=== PATIENT | male | born 1965 | race African-American/Black ===

== ENCOUNTER 2021-07-28 21:30 | Observation (INO) ==
[2021-07-28 21:46] VITALS: BMI 39.2
[2021-07-28 22:20] LABS: BASOPHILS # (AUTO) 0.1 X10^3/uL (0.0-0.1); BASOPHILS % (AUTO) 0.6 % (0.2-1.0); MEAN PLATELET VOLUME 9.9 fL (7.4-11.0); PLATELET COUNT 166 X10^3/uL (150.0-450.0)
[2021-07-28 22:25] LABS: EOSINOPHILS # (AUTO) 0.6 x10^3/uL (0.0-0.2); EOSINOPHILS % (AUTO) 4.6 % (0.9-2.9); HEMATOCRIT 24.9 % (42.0-54.0); HEMOGLOBIN 8.3 g/dL (13.5-18.0); LYMPHOCYTES # (AUTO) 1.8 X10^3/uL (1.3-2.9); LYMPHOCYTES % (AUTO) 13.8 % (21.0-51.0); MEAN CORPUSCULAR HEMOGLOBIN 31.7 pg (27.0-34.0); MEAN CORPUSCULAR HGB CONC 33.5 g/dL (33.0-35.0); MEAN CORPUSCULAR VOLUME 94.5 fL (80.0-100.0); MONOCYTES # (AUTO) 1.5 x10^3/uL (0.3-0.8); MONOCYTES % (AUTO) 11.3 % (0.0-13.0); NEUTROPHILS # (AUTO) 9.1 x10^3/uL (2.2-4.8); NEUTROPHILS % (AUTO) 69.7 % (42.0-75.0); RED BLOOD COUNT 2.63 X10^6/uL (4.7-6.0); RED CELL DISTRIBUTION WIDTH 13.7 % (11.6-16.5); WHITE BLOOD COUNT 13.1 X10^3/uL (3.6-10.0)
[2021-07-28 22:29] LABS: ALBUMIN 3.2 g/dL (3.4-5.0); CALCIUM 8.2 mg/dL (8.5-10.1); CARBON DIOXIDE 29.2 mmol/L (21-32); COR CA(FOR HYPOALB) 8.8 mg/dL (8.5-10.1); CREATININE 1.71 mg/dL (0.70-1.30); TOTAL PROTEIN 6.2 g/dL (6.4-8.2)
--- NOTE | 2021-07-28 22:40 | DR.EXTPAIN ---
HPI Time seen Time Seen by Provider: 07/28/21 22:05 PCP Primary Care Physician: HPI Comment HPI Comment: A 55 y/o male presents with noting rectal bleed since yesterday. And this is jb blood he states and with each use of the commode. This morning, he noted passage of jb blood per penis. He denies associated flank pain. He had a laparoscopic appendectomy yesterday. There is no nausea or vomiting. Complaint/Symptoms Chief Complaint:: PATIENT HAD AN APPENDENTOMY 07/27/2021, PATIENT STATES HE IS BLEEDING DARK RED BLOOD NOT FROM INCISION SITE BUT RECTALLY SINCE YESTERDAY AND FROM PENIS STARTED TODAY. PATIENT NOTIFIED AND WAS TOLD TO NOTIFY HIM ONCE ARRIVED AT THE ER. Nurses notes reviewed Nurses Notes Review: Yes Source History Provided: Patient Mode of arrival Mode of Arrival: Ambulatory Timing Onset of Chief Complaint: 07/27/21 Associated signs and symptoms Associated Signs and Symptoms: Hematuria PMH PMH Past Medical History: Yes Past Medical History: Hypertension Past Surgical History: Yes Surgical History: AAA Repair and Cholecystectomy Past Surgical History Comment: KIDNEY STENTS, FISTULA Family History History of Family Medical Conditions: Yes Family Medical History: Diabetes Mellitus and Hypertension Social History Does patient currently use any type of tobacco product: No Type of Tobacco Use: None Does any household member use tobacco: No Alcohol Use: None Do you use any recreational Drugs:: No Lives With: Spouse Lives Where: Home Infectious screening In the last 2 months have you had wt loss of >10#?: NO Have you had fever, night sweats or hemotysis?: No Have you traveled outside the country in the last 6 months?: No Isolation: Standard ROS Review of Systems Constitutional: No Symptoms Reported Eyes: No Symptoms Reported ENTM: No Symptoms Reported Respiratoy: No Symptoms Reported Cardiovascular: No Symptoms Reported Gastrointestinal/Abdominal: Other (rectal bleed) Genitourinary: Hematuria Neurological: No Symptoms Reported Musculoskeletal: No Symptoms Reported Integumentary: No Symptoms Reported Hematologic/Lymphatic: No Symptoms Reported Endocrine: No Symptoms Reported Psychiatric: No Symptoms Reported PE Vital Signs Vitals: Temperature 99.2 F Pulse Rate [Apical] 95 Pulse Rate 103 Respiratory Rate 17 Blood Pressure [Right Arm] 130/65 Blood Pressure 127/64 O2 Sat by Pulse Oximetry 98 General Limitations: No Limitations General Appearance: Alert and In No Apparent Distress Head Head Exam: Normal Inspection, Atraumatic and Normocephalic Eyes Eye exam: Normal Appearance and EOMI ENT ENT Exam: Normal Exam, Normal Oropharynx, Normal External Ear Exam and Mucous Membranes Moist Neck Neck Exam: Normal Inspection, Full ROM and Trachea Midline Chest Chest Inspection: Normal Inspection and Symmetric Chest Wall Rise Respiratory Respiratory Exam: Normal Lung Sounds Bilat Cardiovascular Cardiovascular Exam: Regular Rate, Normal Rhythm, +S1 and +S2 Abdominal Exam Abdominal Exam: Normal Inspection, Normal Bowel Sounds and Soft Extremities Extremities Exam: Normal Inspection and Full ROM Back Back Exam: Normal Inspection and Full ROM; negative Tenderness, (R) CVA Tenderness, (L) CVA Tenderness, Muscle Spasm, Paraspinal Tenderness, Vertebral Tenderness, Rashes, (R) Sciatic Notch Tenderness, (L) Sciatic Notch Tendern, (R) Straight Leg Raise and (L) Straight Leg Raise Neurological Neurological Exam: Alert and Oriented X3 Psychiatric Psychiatric Exam: Normal Affect and Normal Mood Skin Skin Exam: Intact and Normal Color COURSE Treatment Treatment: One of the shift nurses had reviewed labs. and test results with Dr. Jaramillo and I understand he will be on his way into the hospital. I was later informed that Dr. Jaramillo wants the pt. admitted to his service. Reevaluation 1st: Unchanged Education/Counseling Education/Counseling: Patient, Education and Counseling Educated On: Treatment, Diagnosis, Prognosis and Needs for Follow Up ROR Labs Reviewed Result Diagrams: 07/29/21 06:30 07/28/21 22:10 Laboratory: WBC 12.5 X10^3/uL (3.6-10.0) H 07/29/21 06:30 RBC 2.16 X10^6/uL (4.7-6.0) L 07/29/21 06:30 Hgb 6.9 g/dL (13.5-18.0) L* 07/29/21 06:30 Hct 20.3 % (42.0-54.0) L 07/29/21 06:30 MCV 94.0 fL (80.0-100.0) 07/29/21 06:30 MCH 31.7 pg (27.0-34.0) 07/29/21 06:30 MCHC 33.7 g/dL (33.0-35.0) 07/29/21 06:30 RDW 13.7 % (11.6-16.5) 07/29/21 06:30 Plt Count 155 X10^3/uL (150.0-450.0) 07/29/21 06:30 MPV 10.2 fL (7.4-11.0) 07/29/21 06:30 Neut % (Auto) 66.5 % (42.0-75.0) 07/29/21 06:30 Lymph % (Auto) 15.7 % (21.0-51.0) L 07/29/21 06:30 [place] % (Auto) 11.9 % (0.0-13.0) 07/29/21 06:30 Eos % (Auto) 5.3 % (0.9-2.9) H 07/29/21 06:30 Baso % (Auto) 0.6 % (0.2-1.0) 07/29/21 06:30 Neut # (Auto) 8.3 x10^3/uL (2.2-4.8) H 07/29/21 06:30 Lymph # (Auto) 2.0 X10^3/uL (1.3-2.9) 07/29/21 06:30 [place] # (Auto) 1.5 x10^3/uL (0.3-0.8) H 07/29/21 06:30 Eos # (Auto) 0.7 x10^3/uL (0.0-0.2) H 07/29/21 06:30 Baso # (Auto) 0.1 X10^3/uL (0.0-0.1) 07/29/21 06:30 Absolute Nucleated RBC 0.0 /100WBC 07/29/21 06:30 PT 15.9 SECONDS (11.8-14.3) 07/28/21 22:10 INR Target Range - 07/28/21 22:10 INR 1.34 (0.8-1.3) H 07/28/21 22:10 APTT 41.1 SECONDS (22.9-36.5) H 07/28/21 22:10 PTT Comment - 07/28/21 22:10 Sodium 135 mmol/L (136-145) L 07/28/21 22:10 Corrected Sodium 137 mmol/L (136-145) 07/28/21 22:10 Potassium 3.2 mmol/L (3.5-5.1) L 07/28/21 22:10 Chloride 99 mmol/L (98-107) 07/28/21 22:10 Carbon Dioxide 29.2 mmol/L (21-32) 07/28/21 22:10 BUN 38 mg/dL (7-18) H 07/28/21 22:10 Creatinine 1.71 mg/dL (0.70-1.30) H 07/28/21 22:10 Est GFR (MDRD) Af Amer 54 (>60) L 07/28/21 22:10 Est GFR (MDRD) Non-Af 44 (>60) L 07/28/21 22:10 Glucose 188 mg/dL (65-99) H 07/28/21 22:10 POC Glucose (mg/dL) 232 mg/dL (65-99) H 07/29/21 06:26 Calcium 8.2 mg/dL (8.5-10.1) L 07/28/21 22:10 Corrected Calcium 8.8 mg/dL (8.5-10.1) 07/28/21 22:10 Total Bilirubin 0.70 mg/dL (0.2-1.0) 07/28/21 22:10 AST 20 Units/L (15-37) 07/28/21 22:10 ALT 19 Units/L (12-78) 07/28/21 22:10 Alkaline Phosphatase 49 Units/L (46-116) 07/28/21 22:10 Total Protein 6.2 g/dL (6.4-8.2) L 07/28/21 22:10 Albumin 3.2 g/dL (3.4-5.0) L 07/28/21 22:10 Globulin 3.0 g/dL (2.5-4.5) 07/28/21 22:10 Albumin/Globulin Ratio 1.1 Ratio (1.1-2.1) 07/28/21 22:10 Opioid Opioid Risk Tool Age (Can box if 16-45): No History of Preadolescent Sexual Abuse: No Total: 0 Total Score Risk Category: Low Risk Copyright: Clinton ALEJANDRA predicting aberrant behaviors Diagnosis Discharge Problem: Postoperative anemia due to acute blood loss Hematuria Qualifiers: Hematuria type: gross Qualified Code(s): R31.0 - Gross hematuria Gastrointestinal bleeding Qualifiers: GI bleed type/associated pathology: unspecified gastrointestinal hemorrhage typ e Qualified Code(s): K92.2 - Gastrointestinal hemorrhage, unspecified ADDITIONAL NOTES Additional Notes Additional Notes: Name: Rose REYNA#: [id number]: [id number] : 1965Sex: MLocation: ER Order Number(s): [id number](s):ABDOMEN/PELVIS WITH CON Ordering Physician: Keith Jaramillo Primary Care: Keith Jaramillo Service Date: 07/28/21 Service Time: 2154 HISTORY PATIENT HAD AN APPENDENTOMY 07/27/2021, PATIENT STATES HE IS BLEEDING DARK RED BLOOD NOT FROM INCISION SITE BUT RECTALLY SINCE YESTERDAY AND FROM PENIS STARTED TODAY. STUDY ABDOMEN/PELVIS WITH CON COMPARISON 07/27/2021 TECHNIQUE Multiple axial images of the abdomen and pelvis were obtained from the lung bases to the pubic symphysis after the administration of IV contrast. Dose reduction techniques including Automated Exposure Control (AEC) and adjustment of mA and kV were utilized. FINDINGS The visualized portions of the lung bases are unremarkable . The liver, spleen, pancreas, kidneys, and adrenal glands are unremarkable in their CT appearance. Post cholecystectomy changes.. No significant mesenteric lymphadenopathy or stranding can be observed. Stable complex aortic pathology with stent graft placement due to aortic dissection. 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 No free fluid or free air is seen within the abdomen. Post recent appendectomy changes are noted. There is a small amount of air and stranding in the right lower quadrant from recent surgical procedure. There are scattered air-fluid levels throughout the colon and rectum exhibiting increased attenuation suggesting complex fluid or hemorrhage.. The colon is unremarkable. Specifically, there is no diverticulosis noted within the sigmoid colon. The urinary bladder is grossly unremarkable. The bony structures are grossly intact. IMPRESSION Post recent appendectomy changes are noted. There is a small amount of air and stranding in the right lower quadrant. There is also a small amount of pneumoperitoneum related to recent abdominal surgery. Scattered air-fluid levels throughout the colon and rectum exhibiting mild increased attenuation suggesting complex fluid or hemorrhage. Post cholecystectomy changes. Stable complex aortic pathology without acute hemorrhage noted. Electronically signed by: Juan Malik (Jul 29, 2021 02:32:07) Report Electronically signed: 07/29/21 0234 CC: Keith Jaramillo
[2021-07-29] MEDS ORDERED: DEMEROL INJ IVP ONE (00:02)
[2021-07-29] MEDS ORDERED: DEMEROL INJ ONE ×4 (00:03→23:18)
[2021-07-29] MEDS ORDERED: K-DUR TAB 20 MEQ PO ONE ×2 (01:42→02:07)
[2021-07-29] MEDS ORDERED: NS 1000 ML 1,000 ML IV ONE ×2 (01:42→07:08)
[2021-07-29] MEDS ORDERED: NS 1000 ML 1,000 ML ONE ×2 (02:08→07:10)
[2021-07-29] MEDS: DEMEROL INJ IVP ONE ×2 (02:23→02:26)
--- NOTE | 2021-07-29 02:34 | CT ---
HISTORYPATIENT HAD AN APPENDENTOMY 07/27/2021, PATIENT STATES HE IS BLEEDING DARK RED BLOOD NOT FROM INCISION SITE BUT RECTALLY SINCE YESTERDAY AND FROM PENIS STARTED TODAY.STUDYABDOMEN/PELVIS WITH [id number]/07/2021TECHNIQUEMultiple axial images of the abdomen and pelvis were obtained from the lung bases to the pubic symphysis after the administration of IV contrast. Dose reduction techniques including Automated Exposure Control (AEC) and adjustment of mA and kV were utilized.FINDINGSThe visualized portions of the lung bases are unremarkable . The liver, spleen, pancreas, kidneys, and adrenal glands are unremarkable in their CT appearance. Post cholecystectomy changes.. No significant mesenteric lymphadenopathy or stranding can be observed. Stable complex aortic pathology with stent graft placement due to aortic dissection. 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 No free fluid or free air is seen within the abdomen. Post recent appendectomy changes are noted. There is a small amount of air and stranding in the right lower quadrant from recent surgical procedure. There are scattered air-fluid levels throughout the colon and rectum exhibiting increased attenuation suggesting complex fluid or hemorrhage.. The colon is unremarkable. Specifically, there is no diverticulosis noted within the sigmoid colon. The urinary bladder is grossly unremarkable. The bony structures are grossly intact.IMPRESSIONPost recent appendectomy changes are noted. There is a small amount of air and stranding in the right lower quadrant. There is also a small amount of pneumoperitoneum related to recent abdominal surgery.Scattered air-fluid levels throughout the colon and rectum exhibiting mild increased attenuation suggesting complex fluid or hemorrhage.Post cholecystectomy changes.Stable complex aortic pathology without acute hemorrhage noted.Electronically signed by: Juan Malik (Jul 29, 2021 02:32:07)
[2021-07-29 06:47] LABS: BASOPHILS # (AUTO) 0.1 X10^3/uL (0.0-0.1); BASOPHILS % (AUTO) 0.6 % (0.2-1.0); EOSINOPHILS # (AUTO) 0.7 x10^3/uL (0.0-0.2); EOSINOPHILS % (AUTO) 5.3 % (0.9-2.9); HEMATOCRIT 20.3 % (42.0-54.0); LYMPHOCYTES % (AUTO) 15.7 % (21.0-51.0); MEAN CORPUSCULAR HEMOGLOBIN 31.7 pg (27.0-34.0); MEAN CORPUSCULAR HGB CONC 33.7 g/dL (33.0-35.0); MEAN PLATELET VOLUME 10.2 fL (7.4-11.0); MONOCYTES # (AUTO) 1.5 x10^3/uL (0.3-0.8); MONOCYTES % (AUTO) 11.9 % (0.0-13.0); NEUTROPHILS # (AUTO) 8.3 x10^3/uL (2.2-4.8); NEUTROPHILS % (AUTO) 66.5 % (42.0-75.0); PLATELET COUNT 155 X10^3/uL (150.0-450.0); RED BLOOD COUNT 2.16 X10^6/uL (4.7-6.0); RED CELL DISTRIBUTION WIDTH 13.7 % (11.6-16.5); WHITE BLOOD COUNT 12.5 X10^3/uL (3.6-10.0)
[2021-07-29 06:49] LABS: HEMOGLOBIN 6.9 g/dL (13.5-18.0)
[2021-07-29] MEDS ORDERED: NS 500 ML IV 500 ML IV ONE ×2 (08:49→13:18)
[2021-07-29] MEDS ORDERED: BENADRYL INJ 50 MG VIAL IVP ONE (09:18)
[2021-07-29] MEDS ORDERED: TYLENOL 325 MG TAB PO ONE ×2 (09:18→09:21)
[2021-07-29] MEDS ORDERED: BENADRYL INJ 50 MG VIAL ONE (09:21)
[2021-07-29] MEDS ORDERED: TRANEXAMIC ACID 1,000 MG in NS 100 ML IV 100 ML IV SCH (17:00)
--- NOTE | 2021-07-29 17:04 | DR.H&P ---
H&P History & Physical for Day of: H&P Date: 07/29/21 Chief Complaint Chief Complaint: Dark blood from rectum, blood with urination Allergies Allergies Allergy/AdvReac Type Severity Reaction Status Date / Time hydromorphone [From Dilaudid] Allergy Verified 07/27/21 15:23 morphine Allergy Verified 07/27/21 15:23 History of Present Illness History of Present Illness: This patient is a 55-year-old male who underwent laparoscopic appendectomy 2 days ago for acute appendicitis. He tolerated the procedure well. He was seen in my office yesterday complaining of dark blood per rectum and was hemodynamically stable with a benign abdomen. I received a phone call late last night that he also had blood with urination . Patient presented to the emergency room where he is had CBC drawn, complete metabolic profile and CT scan of the abdomen. Initial hemoglobin was 8.3 and something dropped to 6.9 prompting the delivery of 2 units of packed red blood cells. Past Medical History Past Medical History: CHF, Diabetes and Hypertension Additional Medical History: dissection of thoracic aorta s/p stent graft repair Past Surgical History Surgical History: Appendectomy and Cholecystectomy Additional Surgical History: stent repair aortic dissection, repair of renal fistula, left renal artery aneurysm Family History Family Medical History: Diabetes Mellitus and Hypertension Social History Does patient currently use any type of tobacco product: No Type of Tobacco Use: None Does any household member use tobacco: No Alcohol Use: Occasionally Prescription drug monitoring program results: PDMP reviewed and no concerns identified Medications Home Medications: hydromorphone [From Dilaudid] Allergy (Verified 07/27/21 15:23) morphine Allergy (Verified 07/27/21 15:23) Amiodarone 200 mg daily amlodipine 10 mg daily ciprofloxacin 500 mg BID citalopram 40 mg daily Lasix 40 mg b.i.d. Gabapentin 300 mg TID Leflunomide 20 mg daily Metformin 500 mg daily Metolazone 2.5 mg daily minoxidil 10 mg TID Percocet 5 mg tablets Q6 hours PRN Potassium chloride 40 mg b.i.d. tizanidine 4 mg po TID Labs Result Diagrams: 07/29/21 16:57 07/28/21 22:10 Labs: Laboratory WBC 12.5 X10^3/uL (3.6-10.0) H 07/29/21 06:30 RBC 2.16 X10^6/uL (4.7-6.0) L 07/29/21 06:30 Hgb 6.9 g/dL (13.5-18.0) L* 07/29/21 06:30 Hct 20.3 % (42.0-54.0) L 07/29/21 06:30 MCV 94.0 fL (80.0-100.0) 07/29/21 06:30 MCH 31.7 pg (27.0-34.0) 07/29/21 06:30 MCHC 33.7 g/dL (33.0-35.0) 07/29/21 06:30 RDW 13.7 % (11.6-16.5) 07/29/21 06:30 Plt Count 155 X10^3/uL (150.0-450.0) 07/29/21 06:30 MPV 10.2 fL (7.4-11.0) 07/29/21 06:30 Neut % (Auto) 66.5 % (42.0-75.0) 07/29/21 06:30 Lymph % (Auto) 15.7 % (21.0-51.0) L 07/29/21 06:30 [place] % (Auto) 11.9 % (0.0-13.0) 07/29/21 06:30 Eos % (Auto) 5.3 % (0.9-2.9) H 07/29/21 06:30 Baso % (Auto) 0.6 % (0.2-1.0) 07/29/21 06:30 Neut # (Auto) 8.3 x10^3/uL (2.2-4.8) H 07/29/21 06:30 Lymph # (Auto) 2.0 X10^3/uL (1.3-2.9) 07/29/21 06:30 [place] # (Auto) 1.5 x10^3/uL (0.3-0.8) H 07/29/21 06:30 Eos # (Auto) 0.7 x10^3/uL (0.0-0.2) H 07/29/21 06:30 Baso # (Auto) 0.1 X10^3/uL (0.0-0.1) 07/29/21 06:30 Absolute Nucleated RBC 0.0 /100WBC 07/29/21 06:30 PT 15.9 SECONDS (11.8-14.3) 07/28/21 22:10 INR Target Range - 07/28/21 22:10 INR 1.34 (0.8-1.3) H 07/28/21 22:10 APTT 41.1 SECONDS (22.9-36.5) H 07/28/21 22:10 PTT Comment - 07/28/21 22:10 Sodium 135 mmol/L (136-145) L 07/28/21 22:10 Corrected Sodium 137 mmol/L (136-145) 07/28/21 22:10 Potassium 3.2 mmol/L (3.5-5.1) L 07/28/21 22:10 Chloride 99 mmol/L (98-107) 07/28/21 22:10 Carbon Dioxide 29.2 mmol/L (21-32) 07/28/21 22:10 BUN 38 mg/dL (7-18) H 07/28/21 22:10 Creatinine 1.71 mg/dL (0.70-1.30) H 07/28/21 22:10 Est GFR (MDRD) Af Amer 54 (>60) L 07/28/21 22:10 Est GFR (MDRD) Non-Af 44 (>60) L 07/28/21 22:10 Glucose 188 mg/dL (65-99) H 07/28/21 22:10 POC Glucose (mg/dL) 174 mg/dL (65-99) H 07/29/21 16:16 Calcium 8.2 mg/dL (8.5-10.1) L 07/28/21 22:10 Corrected Calcium 8.8 mg/dL (8.5-10.1) 07/28/21 22:10 Total Bilirubin 0.70 mg/dL (0.2-1.0) 07/28/21 22:10 AST 20 Units/L (15-37) 07/28/21 22:10 ALT 19 Units/L (12-78) 07/28/21 22:10 Alkaline Phosphatase 49 Units/L (46-116) 07/28/21 22:10 Total Protein 6.2 g/dL (6.4-8.2) L 07/28/21 22:10 Albumin 3.2 g/dL (3.4-5.0) L 07/28/21 22:10 Globulin 3.0 g/dL (2.5-4.5) 07/28/21 22:10 Albumin/Globulin Ratio 1.1 Ratio (1.1-2.1) 07/28/21 22:10 Stool Description 30 gms liquid brown 07/29/21 11:39 Stl Occult Blood (IFOB) Positive (NEGATIVE) A 07/29/21 11:39 SARS-CoV-2 (PCR) Negative (NEGATIVE) 07/29/21 07:05 Influenza Type A (PCR) Negative (NEGATIVE) 07/29/21 07:05 Influenza Type B (PCR) Negative (NEGATIVE) 07/29/21 07:05 RSV (PCR) Negative (NEGATIVE) 07/29/21 07:05 Blood Type O POSITIVE 07/29/21 07:07 Antibody Screen Negative 07/29/21 07:07 Crossmatch See Detail 07/29/21 07:07 Review of Systems Constitutional: No Symptoms Reported Eyes: No Symptoms Reported ENT: No Symptoms Reported Respiratory: No Symptoms Reported Cardiovascular: No Symptoms Reported Gastrointestinal: Nausea, Vomiting and Hematochezia Genitourinary: Hematuria Musculoskeletal: No Symptoms Reported Skin: No Symptoms Reported Neurological: No Symptoms Reported Physical Exam Vital Signs: Temperature 98.6 F Pulse Rate [Apical] 97 Pulse Rate 107 Respiratory Rate 20 Blood Pressure [Right Arm] 135/61 Blood Pressure 133/65 O2 Sat by Pulse Oximetry 99 Oriented: Normal, Time, Person and Place Eyes: Normal Ear: Normal Nose: Normal Respiratory: Clear Throughout Cardiovascular: Normal and Other (hypertensive) : Hematuria (CT of pelvis with no abnormality , Had Akhtar placed at time of appendectomy) Auscultation: Bowel Sounds: Normal Palpation: Other (Incisional tenderness, Mild RLQ tenderness, no peritoneal signs ) Tenderness: RLQ (no peritoneal signs) Skin: Normal Musculoskeletal: Normal Mood Description: Anxious Affect: Normal Speech Pattern: Clear Assessment/Plan (1) Diabetes: Status: Acute Plan: Was on clear liquids, no need for urgent surgery. Will start 1800 calorie diet, Will do sliding scale insulun (2) Postoperative anemia due to acute blood loss: Status: Acute Plan: CT scan shows no evidence of acute problems. Does have some evidence of hemorrhage in the colon. No obvious diverticulitis. Patient had a normal colonoscopy 1 1/2 years ago. I am concerned that there is bleeding from the staple line from the appendectomy. Coagulation profile is normal as is the platelet count. There is no evidence of thrombolysis. Patient has received 2 units of blood and hemoglobin is still 6.9. Still with liquid black bowel movements. Will begin tranexemic acid . Will obtain sequential CBC. (3) Hematuria: Qualifiers: Hematuria type: gross Qualified Code(s): R31.0 - Gross hematuria Status: Acute Plan: No evidence of from the lysis. Hematuria may be due to placement of Akhtar catheter . Will observe. (4) Gastrointestinal bleeding: Qualifiers: GI bleed type/associated pathology: unspecified gastrointestinal hemorrhage type Qualified Code(s): K92.2 - Gastrointestinal hemorrhage, unspecified Status: Acute Plan: Will treat symptomatically at this time. Although no epigastric tenderness or vomiting of blood will begin protonic side of the 40 mg to 24 hours. Patient will require colonoscopy. I am hesitant to do that in the acute setting with the acute staple line at the appendix. Will give the tranexmic acid and observe. (5) Acute appendicitis: Qualifiers: Acute appendicitis type: unspecified acute appendicitis type Qualified Code(s): K35.80 - Unspecified acute appendicitis Status: Acute Plan: Continue po Cipro (6) Abdominal pain: Qualifiers: Abdominal location: right lower quadrant Qualified Code(s): R10.31 - Right lower quadrant pain Status: Acute Plan: see above Review H&P Reviewed: Yes Patient was examined?: Yes
[2021-07-29] MEDS ORDERED: PROTONIX INJ 40 MG VIAL IVP ONE (17:08)
[2021-07-29] MEDS ORDERED: TRANEXAMIC ACID 1,000 MG in NS 1000 ML 1,000 ML IV SCH (17:15)
[2021-07-29] MEDS ORDERED: ZOFRAN INJ 4 MG VIAL ONE (17:40)
[2021-07-29] MEDS: DEMEROL INJ IVP PRN ×2 (17:55→23:19)
[2021-07-29] MEDS ORDERED: ZOFRAN INJ 4 MG VIAL IVP PRN (18:09)
[2021-07-29] MEDS ORDERED: HumuLIN R SC PRN (20:39)
[2021-07-29] MEDS ORDERED: LASIX IVP ONE (20:40)
[2021-07-29] MEDS ORDERED: PROTONIX INJ 40 MG VIAL ONE (20:40)
[2021-07-29] MEDS: LASIX IVP ONE ×2 (20:44→20:45)
[2021-07-29] MEDS ORDERED: ZANAFLEX PO PRN (20:46)
[2021-07-29] MEDS ORDERED: CIPRO TAB 500 MG PO ONE (21:03)
[2021-07-29] MEDS: CIPRO TAB 500 MG PO SCH (21:19)
[2021-07-29] MEDS: MINOXIDIL PO SCH (21:20)
[2021-07-29] MEDS: NEURONTIN CAP 300 MG PO SCH (21:20)
[2021-07-29] MEDS: K-DUR TAB 20 MEQ PO SCH (21:20)
[2021-07-29] MEDS ORDERED: NS 250 ML IV 250 ML IV ONE (22:11)
[2021-07-30] MEDS ORDERED: NS 250 ML IV 250 ML IV ONE (02:45)
[2021-07-30] MEDS: NEURONTIN CAP 300 MG PO SCH (05:53)
[2021-07-30] MEDS: MINOXIDIL PO SCH (05:53)
[2021-07-30] MEDS: NS 1000 ML 1,000 ML IV SCH ×2 (05:54→10:04)
[2021-07-30 07:00] LABS: HEMATOCRIT 21.8 % (42.0-54.0); HEMOGLOBIN 7.5 g/dL (13.5-18.0)
[2021-07-30] MEDS ORDERED: LASIX PO SCH (09:00)
[2021-07-30] MEDS ORDERED: NORVASC TAB 10 MG PO SCH (09:00)
[2021-07-30] MEDS ORDERED: ZAROXOLYN PO SCH (09:00)
[2021-07-30] MEDS ORDERED: CORDARONE TAB 200 MG PO SCH (09:00)
[2021-07-30] MEDS ORDERED: PROTONIX INJ 40 MG VIAL IVP SCH (09:00)
[2021-07-30] MEDS ORDERED: CELEXA PO SCH (09:00)
[2021-07-30] MEDS ORDERED: CIPRO TAB 500 MG PO ONE (09:17)
[2021-07-30] MEDS ORDERED: K-DUR TAB 20 MEQ PO ONE (09:17)
[2021-07-30] MEDS ORDERED: NS 1000 ML 1,000 ML ONE (09:17)
[2021-07-30] MEDS ORDERED: LASIX ONE (09:17)
[2021-07-30] MEDS ORDERED: PROTONIX INJ 40 MG VIAL ONE (09:17)
[2021-07-30] MEDS: CIPRO TAB 500 MG PO SCH (09:46)
[2021-07-30] MEDS: K-DUR TAB 20 MEQ PO SCH (09:47)
[2021-07-30 12:33] LABS: BASOPHILS % (AUTO) 0.5 % (0.2-1.0); EOSINOPHILS # (AUTO) 0.7 x10^3/uL (0.0-0.2); EOSINOPHILS % (AUTO) 9.3 % (0.9-2.9); HEMATOCRIT 21.6 % (42.0-54.0); HEMOGLOBIN 7.4 g/dL (13.5-18.0); LYMPHOCYTES # (AUTO) 0.7 X10^3/uL (1.3-2.9); MEAN CORPUSCULAR HEMOGLOBIN 30.2 pg (27.0-34.0); MEAN CORPUSCULAR HGB CONC 34.2 g/dL (33.0-35.0); MEAN CORPUSCULAR VOLUME 88.2 fL (80.0-100.0); MEAN PLATELET VOLUME 9.9 fL (7.4-11.0); MONOCYTES # (AUTO) 0.8 x10^3/uL (0.3-0.8); MONOCYTES % (AUTO) 10.7 % (0.0-13.0); NEUTROPHILS # (AUTO) 5.2 x10^3/uL (2.2-4.8); NEUTROPHILS % (AUTO) 70.5 % (42.0-75.0); PLATELET COUNT 116 X10^3/uL (150.0-450.0); RED BLOOD COUNT 2.45 X10^6/uL (4.7-6.0); RED CELL DISTRIBUTION WIDTH 15.8 % (11.6-16.5); WHITE BLOOD COUNT 7.4 X10^3/uL (3.6-10.0)
[2021-07-30 12:45] VITALS: BP 164/74
--- NOTE | 2021-07-30 13:36 | PCM.DCPLAN ---
DISCHARGE SUMMARY Admission Date Date of Admission: 07/29/21 Discharge Date Discharge Date: 07/30/21 Admission Diagnoses (1) Diabetes: Status: Acute (2) Postoperative anemia due to acute blood loss: Status: Acute (3) Hematuria: Status: Acute (4) Gastrointestinal bleeding: Status: Acute (5) Acute appendicitis: Status: Acute (6) Abdominal pain: Status: Acute Discharge Diagnoses Discharge Diagnosis: same Discharge Medications Discharge Medications: Home Medication List pantoprazole [Protonix] 40 mg PO QAM #30 tab 07/30/21 [Rx] Prescriptions: pantoprazole [Protonix] [facility] Course Vital Signs: Temperature 98.7 F Pulse Rate [Apical] 93 Pulse Rate 107 Respiratory Rate 18 Blood Pressure [Right Arm] 164/74 Blood Pressure 133/65 O2 Sat by Pulse Oximetry 100 Latest Lab Results: Laboratory Last Values WBC 7.4 X10^3/uL (3.6-10.0) 07/30/21 12:21 RBC 2.45 X10^6/uL (4.7-6.0) L 07/30/21 12:21 Hgb 7.4 g/dL (13.5-18.0) L 07/30/21 12:21 Hct 21.6 % (42.0-54.0) L 07/30/21 12:21 MCV 88.2 fL (80.0-100.0) 07/30/21 12:21 MCH 30.2 pg (27.0-34.0) 07/30/21 12:21 MCHC 34.2 g/dL (33.0-35.0) 07/30/21 12:21 RDW 15.8 % (11.6-16.5) 07/30/21 12:21 Plt Count 116 X10^3/uL (150.0-450.0) L 07/30/21 12:21 MPV 9.9 fL (7.4-11.0) 07/30/21 12:21 Neut % (Auto) 70.5 % (42.0-75.0) 07/30/21 12:21 Lymph % (Auto) 9.0 % (21.0-51.0) L 07/30/21 12:21 Love % (Auto) 10.7 % (0.0-13.0) 07/30/21 12:21 Eos % (Auto) 9.3 % (0.9-2.9) H 07/30/21 12:21 Baso % (Auto) 0.5 % (0.2-1.0) 07/30/21 12:21 Neut # (Auto) 5.2 x10^3/uL (2.2-4.8) H 07/30/21 12:21 Lymph # (Auto) 0.7 X10^3/uL (1.3-2.9) L 07/30/21 12:21 Love # (Auto) 0.8 x10^3/uL (0.3-0.8) 07/30/21 12:21 Eos # (Auto) 0.7 x10^3/uL (0.0-0.2) H 07/30/21 12:21 Baso # (Auto) 0.0 X10^3/uL (0.0-0.1) 07/30/21 12:21 Absolute Nucleated RBC 0.1 /100WBC 07/30/21 12:21 PT 15.1 SECONDS (11.8-14.3) 07/30/21 06:38 INR Target Range - 07/30/21 06:38 INR 1.25 (0.8-1.3) 07/30/21 06:38 APTT 34.2 SECONDS (22.9-36.5) 07/30/21 06:38 PTT Comment - 07/30/21 06:38 Fibrinogen 344 mg/dL (239-489) 07/30/21 06:38 Sodium 135 mmol/L (136-145) L 07/28/21 22:10 Corrected Sodium 137 mmol/L (136-145) 07/28/21 22:10 Potassium 3.2 mmol/L (3.5-5.1) L 07/28/21 22:10 Chloride 99 mmol/L (98-107) 07/28/21 22:10 Carbon Dioxide 29.2 mmol/L (21-32) 07/28/21 22:10 BUN 38 mg/dL (7-18) H 07/28/21 22:10 Creatinine 1.71 mg/dL (0.70-1.30) H 07/28/21 22:10 Est GFR (MDRD) Af Amer 54 (>60) L 07/28/21 22:10 Est GFR (MDRD) Non-Af 44 (>60) L 07/28/21 22:10 Glucose 188 mg/dL (65-99) H 07/28/21 22:10 POC Glucose (mg/dL) 208 mg/dL (65-99) H 07/30/21 12:39 Calcium 8.2 mg/dL (8.5-10.1) L 07/28/21 22:10 Corrected Calcium 8.8 mg/dL (8.5-10.1) 07/28/21 22:10 Total Bilirubin 0.70 mg/dL (0.2-1.0) 07/28/21 22:10 AST 20 Units/L (15-37) 07/28/21 22:10 ALT 19 Units/L (12-78) 07/28/21 22:10 Alkaline Phosphatase 49 Units/L (46-116) 07/28/21 22:10 Total Protein 6.2 g/dL (6.4-8.2) L 07/28/21 22:10 Albumin 3.2 g/dL (3.4-5.0) L 07/28/21 22:10 Globulin 3.0 g/dL (2.5-4.5) 07/28/21 22:10 Albumin/Globulin Ratio 1.1 Ratio (1.1-2.1) 07/28/21 22:10 Stool Description 30 gms liquid brown 07/29/21 11:39 Stl Occult Blood (IFOB) Positive (NEGATIVE) A 07/29/21 11:39 SARS-CoV-2 (PCR) Negative (NEGATIVE) 07/29/21 07:05 Influenza Type A (PCR) Negative (NEGATIVE) 07/29/21 07:05 Influenza Type B (PCR) Negative (NEGATIVE) 07/29/21 07:05 RSV (PCR) Negative (NEGATIVE) 07/29/21 07:05 Blood Type O POSITIVE 07/29/21 07:07 Antibody Screen Negative 07/29/21 07:07 Crossmatch See Detail 07/29/21 07:07 Hospital Course: 55-year-old male with history of diabetes and complex aortic dissection in the past who presented with acute appendicitis on July 27 and underwent uncomplicated laparoscopic appendectomy. The next day he was seen in the office for passing blood per rectum. He was stable at that time. He was discharged to home later that night and called me with complaining of blood in his urine as well. I instructed him to come to the emergency room where he had evaluation to include metabolic profile which showed mild elevation his creatinine as expected. Decrease hemoglobin of 8 grams which ultimately went to 6.9 and dark liquid stool. His abdominal exam was benign. CT scan showed no evidence of perforation or leak. There was no abscess. There appeared to be material inside the colon consistent with possible hemorrhage. No diverticulosis noted. He was given 2 units of packed red blood cells and the blood in his urine stopped. Hemoglobin however still was 6.9 he was given additional 2 units of packed red blood cells and was given our protocol for tranexmic acid for presumed bleeding from his appendiceal staple line . His hemoglobin this a.m. was 7.5 and 6 hours later was 7.4. He feels better. His abdomen exam is benign and he is tolerating a diet. He notes that he has formed stool now. He will be discharged home on his usual medications including the recent medications for Cipro 500 mg BID, Percocet 5 mg tablets q6 hours PRN Pain and I will add Protonix 40 mg po Q day. He gives a history of colonoscopy a year and half ago with no significant findings. I will plan colonoscopy and EGD for him in the near future. He already has a follow up to see me in the office next week. He has my phone number to call me should there be any continued problems with bleeding. Instructions Instructions: Appendicitis Gastrointestinal Bleeding Forms: Excuse From Work or School Precautions for COVID19 [facility] Social Distancing
== END 2021-07-30 14:30 | disposition home or self-care (01) ==
LOC: ER 21:36 → OBS 07-29 07:48 → INTOOBSV 07-29 07:48 → OBS 07-29 08:33
PROVIDERS: ADMIT Surgery; ATTEND Surgery